=== PATIENT | male | born 1990 | race Caucasian/White ===

== ENCOUNTER 2016-11-05 20:01 | Emergency (ER) | payer BC ==
[2016-11-05] MEDS ORDERED: NS 0.9% 1000 ML* 2,000 ML IV ONE ×2 (20:12→23:03)
[2016-11-05 20:49] LABS: Hematocrit 39 % (42-52); Hemoglobin 13.2 g/dl (14.0-18.0); Mean Corpuscular HGB Conc 34 g/dl (31-36); Mean Corpuscular Hemoglobin 30 pg (27-31); Mean Corpuscular Volume 89 fL (80-94); Mean Platelet Volume 9 um3 (7.4-10.4); Red Blood Count 4.37 10^6/ul (4.0-5.4); Red Cell Distribution Width 12 % (10.5-15)
[2016-11-05 21:04] LABS: ALT 18 U/L (7-52); AST 18 U/L (13-39); Albumin 4.3 g/dL (3.2-5.2); Alkaline Phosphatase 47 U/L (34-104); Anion Gap 12 mmol/L (2-11); BUN/Creatinine Ratio 17.3 (8-20); Blood Urea Nitrogen 19 mg/dL (6-24); C Reactive Protein < 1.00 mg/L (< 5.00); CO2 Carbon Dioxide 21 mmol/L (22-32); Calcium 9.1 mg/dL (8.6-10.3); Chloride 103 mmol/L (101-111); Creatine Kinase 138 U/L (10-223); EGFR African American 104.1 (>60); EGFR Non-African American 80.9 (>60); Globulin 2.6 g/dL (2-4); Glucose 131 mg/dL (70-100); Magnesium 1.9 mg/dL (1.9-2.7); Potassium 3.3 mmol/L (3.5-5.0); Sodium 136 mmol/L (133-145); Total Protein 6.9 g/dL (6.4-8.9); Uric Acid 8.6 mg/dL (4.4-7.6)
[2016-11-05 21:37] LABS: TSH (Thyroid Stimulating Horm) 1.18 mcIU/mL (0.34-5.60)
[2016-11-05 21:40] LABS: Mono Internal Control QC Line Present
[2016-11-05 21:47] LABS: Urine Bilirubin Negative (Negative); Urine Glucose Negative (Negative); Urine Nitrite Negative (Negative)
--- NOTE | 2016-11-05 22:19 | RAD ---
Indication: Syncope. Single frontal view of the chest performed at 2118 hours was reviewed. No prior study is available for comparison. No mediastinal shift is noted. Heart is of normal size and configuration. Lung alvares appear clear. IMPRESSION: NO ACTIVE CARDIOPULMONARY DISEASE IS NOTED.
--- NOTE | 2016-11-05 23:10 | ED ---
Chacorta To Thomas, scribed for uJaquin Fair MD on 11/05/16 at 2025 . Lower Extremity - HPI Summary HPI Summary: The pt is a 26 y/o M BIB EMS and presenting to the ED c/o lightheadedness, dizziness, and tremors that began quite suddenly today at 19:15 when he was hiking. He also c/o thirst, some nausea. Per EMS, his HR was 120 at the scene and in the examination room his HR is 100. He was given IV fluids en route to [facility] [place] ED, but these did not relieve his symptoms. Pt denies abd pain, CP, SOB. He also denies that he is currently sick. He reports that he drank 2 cups of coffee today but has not consumed any other liquids to the best of his knowledge. He denies any episodes of symptoms that are similar to this. - History of Current Complaint Chief Complaint: EDDizziness Stated Complaint: NEAR SYNCOPE Time Seen by Provider: 11/05/16 20:04 Hx Obtained From: Patient, EMS Onset of Pain: Immediate Onset/Duration: Minutes - today at 19:15 Pain Intensity: 0 Pain Scale Used: 0-10 Numeric Timing: Constant Associated Signs And Symptoms: Positive: Dizziness, Other - POS: lightheadedness , tremors, thirst, some nausea; NEG: CP, SOB. Negative: Fever, Abdominal Pain Aggravating Factor(s): Nothing Alleviating Factor(s): Nothing - Allergies/Home Medications Allergies/Adverse Reactions: Allergies Allergy/AdvReac Type Severity Reaction Status Date / Time No Known Allergies Allergy Verified 11/13/13 07:49 PMH/Surg Hx/FS Hx/Imm Hx Previously Healthy: No Cardiovascular History: Denies: Hx Cardiac Arrest History: Reports: Other Problems/Disorders - LEFT VARICOCELE Sensory History: Reports: Hx Contacts or Glasses - GLASSES WHEN DRIVING Opthamlomology History: Reports: Hx Contacts or Glasses - GLASSES WHEN DRIVING EENT History: Denies: Hx Deafness - Surgical History Surgery Procedure, Year, and Place: 1996- BIOPSY LEFT HIP Hx Anesthesia Reactions: No Infectious Disease History: Denies: Traveled Outside the [place] in Last 30 Days - Family History Known Family History: Positive: Diabetes - Social History Alcohol Use: Weekly Alcohol Amount: 4 DRINKS WEEKLY Hx Substance Use: No Substance Use Type: Reports: None Hx Tobacco Use: No Smoking Status (MU): Never Smoked Tobacco Review of Systems Positive: Other - POS: thirst. Negative: Fever Negative: Chest Pain Negative: Shortness Of Breath Positive: Nausea - some. Negative: Abdominal Pain Neurological: Other - POS: lightheadedness, dizziness, tremors All Other Systems Reviewed And Are Negative: Yes Physical Exam Triage Information Reviewed: Yes Vital Signs On Initial Exam: Initial Vitals Temp Pulse Resp BP Pulse Ox 98.3 F 105 14 137/66 100 11/05/16 20:03 11/05/16 20:03 11/05/16 20:03 11/05/16 20:03 11/05/16 20:03 Vital Signs Reviewed: Yes Appearance: Positive: No Pain Distress, Well-Nourished, Ill-Appearing Skin: Positive: Warm, Skin Color Reflects Adequate Perfusion, Dry Head/Face: Positive: Normal Head/Face Inspection Eyes: Positive: EOMI, AZAM ENT: Positive: Normal ENT inspection Neck: Positive: Supple, Nontender Respiratory/Lung Sounds: Positive: Clear to Auscultation, Breath Sounds Present Cardiovascular: Positive: RRR Abdomen Description: Positive: Nontender, Soft Musculoskeletal: Positive: Normal, Strength/ROM Intact Neurological: Positive: Sensory/Motor Intact, Alert, Oriented to Person Place, Time, Other - He has tremors Psychiatric: Positive: Affect/Mood Appropriate - [place] Coma Scale Coma Scale Total: 15 Diagnostics - Vital Signs Vital Signs Temp Pulse Resp BP Pulse Ox 11/05/16 20:06 98.3 F 105 14 137/66 100 11/05/16 20:03 98.3 F 105 14 137/66 100 - Laboratory Lab Results: Lab Results 11/05/16 11/05/16 11/05/16 Range/Units 20:38 20:38 20:38 WBC 14.0 H (3.5-10.8) 10^3/ul RBC 4.37 (4.0-5.4) 10^6/ul Hgb 13.2 L (14.0-18.0) g/dl Hct 39 L (42-52) % MCV 89 (80-94) fL MCH 30 (27-31) pg MCHC 34 (31-36) g/dl RDW 12 (10.5-15) % Plt Count 215 (150-450) 10^3/ul MPV 9 (7.4-10.4) um3 Neut % (Auto) 76.1 (38-83) % Lymph % (Auto) 17.7 L (25-47) % [place] % (Auto) 4.8 (1-9) % Eos % (Auto) 1.1 (0-6) % Baso % (Auto) 0.3 (0-2) % Absolute Neuts (auto) 10.7 H (1.5-7.7) 10^3/ul Absolute Lymphs (auto) 2.5 (1.0-4.8) 10^3/ul Absolute Monos (auto) 0.7 (0-0.8) 10^3/ul Absolute Eos (auto) 0.2 (0-0.6) 10^3/ul Absolute Basos (auto) 0 (0-0.2) 10^3/ul Absolute Nucleated RBC 0.01 10^3/ul Nucleated RBC % 0.1 Sodium 136 (133-145) mmol/L Potassium 3.3 L (3.5-5.0) mmol/L Chloride 103 (101-111) mmol/L Carbon Dioxide 21 L (22-32) mmol/L Anion Gap 12 H (2-11) mmol/L BUN 19 (6-24) mg/dL Creatinine 1.10 (0.67-1.17) mg/dL Est GFR ( Amer) 104.1 (>60) Est GFR (Non-Af Amer) 80.9 (>60) BUN/Creatinine Ratio 17.3 (8-20) Glucose 131 H (70-100) mg/dL Lactic Acid 1.8 (0.5-2.0) mmol/L Uric Acid 8.6 H (4.4-7.6) mg/dL Calcium 9.1 (8.6-10.3) mg/dL Magnesium 1.9 (1.9-2.7) mg/dL Total Bilirubin 0.80 (0.2-1.0) mg/dL AST 18 (13-39) U/L ALT 18 (7-52) U/L Alkaline Phosphatase 47 (34-104) U/L Total Creatine Kinase 138 (10-223) U/L CK-MB (CK-2) 2.1 (0.6-6.3) ng/mL Troponin I 0.00 (<0.04) ng/mL C-Reactive Protein < 1.00 (< 5.00) mg/L Total Protein 6.9 (6.4-8.9) g/dL Albumin 4.3 (3.2-5.2) g/dL Globulin 2.6 (2-4) g/dL Albumin/Globulin Ratio 1.7 (1-3) TSH 1.18 (0.34-5.60) mcIU/mL Urine Color Urine Appearance Urine pH (5-9) Ur Specific [place] (1.010-1.030) Urine Protein (Negative) Urine Ketones (Negative) Urine Blood (Negative) Urine Nitrate (Negative) Urine Bilirubin (Negative) Urine Urobilinogen (Negative) Ur Leukocyte Esterase (Negative) Urine Glucose (Negative) Monoscreen Negative (Negative) 11/05/16 Range/Units 21:38 WBC (3.5-10.8) 10^3/ul RBC (4.0-5.4) 10^6/ul Hgb (14.0-18.0) g/dl Hct (42-52) % MCV (80-94) fL MCH (27-31) pg MCHC (31-36) g/dl RDW (10.5-15) % Plt Count (150-450) 10^3/ul MPV (7.4-10.4) um3 Neut % (Auto) (38-83) % Lymph % (Auto) (25-47) % [place] % (Auto) (1-9) % Eos % (Auto) (0-6) % Baso % (Auto) (0-2) % Absolute Neuts (auto) (1.5-7.7) 10^3/ul Absolute Lymphs (auto) (1.0-4.8) 10^3/ul Absolute Monos (auto) (0-0.8) 10^3/ul Absolute Eos (auto) (0-0.6) 10^3/ul Absolute Basos (auto) (0-0.2) 10^3/ul Absolute Nucleated RBC 10^3/ul Nucleated RBC % Sodium (133-145) mmol/L Potassium (3.5-5.0) mmol/L Chloride (101-111) mmol/L Carbon Dioxide (22-32) mmol/L Anion Gap (2-11) mmol/L BUN (6-24) mg/dL Creatinine (0.67-1.17) mg/dL Est GFR ( Amer) (>60) Est GFR (Non-Af Amer) (>60) BUN/Creatinine Ratio (8-20) Glucose (70-100) mg/dL Lactic Acid (0.5-2.0) mmol/L Uric Acid (4.4-7.6) mg/dL Calcium (8.6-10.3) mg/dL Magnesium (1.9-2.7) mg/dL Total Bilirubin (0.2-1.0) mg/dL AST (13-39) U/L ALT (7-52) U/L Alkaline Phosphatase (34-104) U/L Total Creatine Kinase (10-223) U/L CK-MB (CK-2) (0.6-6.3) ng/mL Troponin I (<0.04) ng/mL C-Reactive Protein (< 5.00) mg/L Total Protein (6.4-8.9) g/dL Albumin (3.2-5.2) g/dL Globulin (2-4) g/dL Albumin/Globulin Ratio (1-3) TSH (0.34-5.60) mcIU/mL Urine Color Yellow Urine Appearance Clear Urine pH 7.0 (5-9) Ur Specific [place] 1.015 (1.010-1.030) Urine Protein Negative (Negative) Urine Ketones 2+ H (Negative) Urine Blood Negative (Negative) Urine Nitrate Negative (Negative) Urine Bilirubin Negative (Negative) Urine Urobilinogen Negative (Negative) Ur Leukocyte Esterase Negative (Negative) Urine Glucose Negative (Negative) Monoscreen (Negative) Result Diagrams: 11/05/16 20:38 11/05/16 20:38 Lab Statement: Any lab studies that have been ordered have been reviewed, and results considered in the medical decision making process. - EKG 21:13 Cardiac Rate: Tachycardia - 103 BPM EKG Interpretation: Sinus tachycardia. Nml ST. Borderline prolonged QTc interval at 469. Lower Extremity Course/Dx - Course Assessment/Plan: The pt is a 26 y/o M BIB EMS and presenting to the ED c/o lightheadedness, dizziness, and tremors that began quite suddenly today at 19: 15 when he was hiking. He also c/o thirst, some nausea. Per EMS, his HR was 120 at the scene and in the examination room his HR is 100. He was given IV fluids en route to [facility] [place] ED, but these did not relieve his symptoms. Pt denies abd pain, CP, SOB. He also denies that he is currently sick. He reports that he drank 2 cups of coffee today but has not consumed any other liquids to the best of his knowledge. He denies any episodes of symptoms that are similar to this. In the ED course the patient was given IV fluids. Bloodwork shows WBC 14, Hgb 13.2, Hct 39, absolute Neuts 10.7, Potassium 3.3, CO2 21, anion gap 12, glucose 131, uric acid 8.6. EKG shows sinus tachycardia with borderline prolonged QTc interval. DISCUSSED WITH HOSPITALIST; CRP NL, NO INCREASED FL INTERVAL. LYME SCREEN PENDING. IMPROVED IN ED WITH 2 LITERS IVF. THE PLAN IS TO GIVE ADDITIONAL IVF; IF IMPROVED FURTHER, WILL BE DISCHARGE HOME; IF NOT IMPROVED, CONSIDER ADMISSION. THIS WAS ALL DISCUSSED WITH PATIENT AND HIS MOTHER. - Diagnoses Provider Diagnoses: Near syncope, Dehydration Discharge - Discharge Plan Condition: Stable Disposition: HOME Patient Education Materials: Near Syncope (ED), Dehydration (ED) Referrals: Steven Griffiths MD [Primary Care Provider] - Additional Instructions: FOLLOW UP WITH YOUR DOCTOR. DRINK PLENTY OF FLUIDS. RETURN TO THE EMERGENCY DEPARTMENT FOR ANY WORSENING OF YOUR CONDITION; CHEST PAIN, SHORTNESS OF BREATH, YOU FEEL ILL, PALPITATIONS, YOU FEEL LIKE YOU ARE GOING TO PASS PUT OR QUESTIONS OR CONCERNS. The documentation as recorded by the Chacorta gonzalez Thomas accurately reflects the service I personally performed and the decisions made by me, Juaquin Fair MD.
[2016-11-06 00:43] VITALS: BP 117/53
== END 2016-11-06 00:49 | disposition home or self-care (01) ==
LOC: ED 20:01
DX: R55 Syncope and collapse (principal); R42 Dizziness and giddiness; E86.0 Dehydration
CPT/HCPCS: 36415; 71010; 80053; 81003; 82550; 82553; 83605; 83735; 84443; 84484; 84550; 85025; 86140; 86308; 86618; 93005; 99285

== ENCOUNTER 2018-05-24 07:36 | Emergency (ER) | payer BC ==
--- OUTSIDE RECORDS SUMMARY | 2018-05-24 07:47 | XMS REPORT | Continuity of Care Document ---
:1990 External Reference #:[id number] Author Name Tiana Deras Care Team Providers Name Role Phone Shama Williamson M.D. Primary Care Physician Unavailable Payers Date Identification Numbers Payment Provider Subscriber Policy Number: [id number] [employer] Freddy Rios PayID: [id number] [address] [address] [place] [address] Effective: 2012 Policy Number: [id number] [employer] Neo Rios Expires: 2016 PayID: [id number] [address] [address] [place] [address] Expires: 2012 Policy Number: [id number] [employer] Neo Rios PayID: [id number] [place] [address] Expires: 2016 Policy Number: [id number] [facility] Ppo Freddy Rios PayID: [id number] [address] [address] [place] [address] Advance Directives Description No Information Available Problems Date Description Provider Status Onset: 08/20/2012 Essential tremor Dale Zafar M.D. 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/2017 Occasionally consumes at parties alcohol Tobacco Use Start: Unknown Patient has never smoked Recreational Drug Use Denies Drug Use Smoking Status Reviewed: 05/19/18 Patient has never smoked Exercise Type/Frequency Exercises regularly jogs Currently Active Patient is currently sexually active Condom Use Always Allergies, Adverse Reactions, Alerts Date Description Reaction Status Severity Comments 10/18/2015 Doxycycline Active Moderate perioral itching, lip swelling 05/03/2011 NKDA Inactive Medications Medication Date Status Form Strength Qnty SIG Indications Ordering Provider Sertraline HCL 11/09/ Active Tablets 50mg 90tabs take 1 Sudhir 2016 tablet KO Dumont once daily. Levocetirizine / Active Tablets 5mg 1 by Unknown Dihydrochloride 0000 mouth every day prn Amoxicillin 12/18/ Hx Tablets 500mg 63tabs 1 tab by Steven Colmenares - mouth 3x D. Aye, 01/08/ a day M.D.,FACP 2016 for 21 days Lorazepam 11/09/ Hx Tablets 1mg 10tabs /2-1 by Steven 2017 - mouth Yancy Griffiths, 05/19/ once a M.D.,FACP 2018 day as needed Prednisone 06/29/ Hx Tablets 10mg 30tabs 5tabx L50.8 Stilwell 2017 - 2days,4 Pachikara, 10/28/ hdcs2iom M.D. 2017 s [id number] ys,2tabx 2days,1t abxday. No Active 05/07/ Hx Unknown Medications 2014 - 2014 Erythromycin 05/07/ Hx Ointment 5mg/GM 3.5uni apply 372.30 Be 2014 - bouchra Bolanos NP 10/01/ strip in 2014 eyes 5 times a day for 4 days No Active 03/10/ Hx Unknown Medications 2013 - 2013 Erythromycin 03/10/ Hx Ointment 5mg/GM 3.5uni apply 372.30 Steven 2013 Cleo shook thin Yancy Griffiths, 05/07/ strip in M.D.,FACP 2014 eyes 5 times a day for 4 days Clarithromycin 03/10/ Hx Tablets 500mg 20tabs 1 by 461.8 Steven 2013 - mouth Yancy Griffiths, 05/07/ twice a M.D.,FACP 2014 day for 10 days No Active 08/20/ Hx Unknown Medications 2012 - 2012 Azithromycin 12/31/ Tablets 250mg 6tabs 2 tabs Elisabeth 2012 - po qd x1 Nitish, 08/20/ day, 1 N.P. 2013 tab po qd x 4 days Claritin / Hx 1 tablet Unknown 0000 - daily 03/10/ prn 2013 Doxycycline / Hx Solution 100mg 20unit si Unknown Hyclate 0000 - Rec s bid x 10 03/10/ 2013 Allergy Shots / Hx Unknown 0000 - 2015 Cefuroxime Axetil / Hx Tablets 500mg 1 PO bid Unknown 0000 - X 21 2016 Medications Administered in Office Medication Date Status Form Strength Qnty SIG Indications Ordering Provider PPD Administered Injection Nurse Visit 012 [place] DTaP,Unspecifi Administered Injection Unknown ed 996 DTaP,Unspecifi Administered Injection Unknown ed 992 DTaP,Unspecifi Administered Injection Unknown ed 991 DTaP,Unspecifi Administered Injection Unknown ed 991 DTaP,Unspecifi Administered Injection Unknown ed 991 Immunizations CPT Code Status Date Vaccine Lot # [id number] Given 10/16/2010 Hepatitis A Vaccine Adult Dosage 13949 Given 06/30/2008 Meningococcal Immunization 58377 Given 06/30/2008 Hepatitis A Vaccine Adult Dosage 15136 Given 08/02/2003 Td Toxoids Adsorbed For Use 7Yrs Or Older For Intramuscular Use 85987 Given 06/05/2001 Hep B Pediatric/Adolescent 10231 Given 02/06/2001 Hep B Pediatric/Adolescent 82519 Given 12/02/2000 Hep B Pediatric/Adolescent 11349 Given 10/15/1995 IPV/Poliomyelitis Immunization 02952 Given 10/15/1995 Measles Mumps And Rubella MMR 28629 Given 12/01/1991 IPV/Poliomyelitis Immunization 31792 Given 12/01/1991 Measles Mumps And Rubella MMR 67906 Given 08/08/1991 Varicella (Chicken Pox) Immunization 84434 Given 1990 IPV/Poliomyelitis Immunization 60370 Given Unknown IPV/Poliomyelitis Immunization Vital Signs Date Vital Result Comment 05/19/2018 3:28pm Height 74 inches 6'2" Weight 165.00 lb Heart Rate 61 /min BP Systolic 117 mmHg BP Diastolic 68 mmHg Body Temperature 97.4 F O2 % BldC Oximetry 97 % BMI (Body Mass Index) 21.2 kg/m2 02/28/2017 2:22pm Weight 163.12 lb Heart Rate 67 /min BP Systolic 118 mmHg BP Diastolic 68 mmHg Body Temperature 97.1 F O2 % BldC Oximetry 91 % 12/12/2016 8:27am Weight 163.00 lb Heart Rate 93 /min BP Systolic Sitting 110 mmHg BP Diastolic Sitting 62 mmHg Body Temperature 96.7 F O2 % BldC Oximetry 98 % 12/03/2016 3:10pm Height 74 inches 6'2" Weight 160.00 lb Heart Rate 95 /min BP Systolic 136 mmHg BP Diastolic 74 mmHg Body Temperature 98.4 F O2 % BldC Oximetry 97 % BMI (Body Mass Index) 20.5 kg/m2 11/08/2016 4:09pm Height 74 inches 6'2" Weight 169.38 lb Heart Rate 79 /min BP Systolic 108 mmHg BP Diastolic 62 mmHg Body Temperature 97.2 F O2 % BldC Oximetry 99 % BMI (Body Mass Index) 21.7 kg/m2 10/29/2016 2:12pm Weight 171.00 lb Heart Rate 57 /min BP Systolic 110 mmHg BP Diastolic 60 mmHg Body Temperature 97.6 F O2 % BldC Oximetry 98 % 06/29/2016 9:17am Weight 170.00 lb Heart Rate 74 /min BP Systolic Sitting 128 mmHg BP Diastolic Sitting 80 mmHg Respiratory Rate 16 /min Body Temperature 98.1 F O2 % BldC Oximetry 98 % 10/18/2015 8:30am Weight 168.00 lb Heart Rate 51 /min BP Systolic Sitting 122 mmHg BP Diastolic Sitting 70 mmHg Body Temperature 97.0 F O2 % BldC Oximetry 98 % 10/01/2014 4:03pm Weight 168.00 lb Heart Rate 76 /min BP Systolic Sitting 114 mmHg BP Diastolic Sitting 80 mmHg Body Temperature 97.3 F O2 % BldC Oximetry 98 % 05/07/2014 9:52am Height 74 inches 6'2" Weight 169.12 lb Heart Rate 61 /min BP Systolic Sitting 112 mmHg BP Diastolic Sitting 78 mmHg Body Temperature 96.2 F O2 % BldC Oximetry 98 % BMI (Body Mass Index) 21.7 kg/m2 03/10/2014 1:08pm Weight 165.25 lb Heart Rate 64 /min BP Systolic Sitting 102 mmHg BP Diastolic Sitting 64 mmHg Body Temperature 96.9 F 11/18/2012 3:47pm Weight 157.00 lb Heart Rate 58 /min BP Systolic Sitting 108 mmHg BP Diastolic Sitting 66 mmHg 08/20/2012 4:15pm Weight 162.00 lb Heart Rate 64 /min BP Systolic Sitting 130 mmHg BP Diastolic Sitting 72 mmHg 05/03/2011 3:39pm Height 73 inches 6'1" Weight 152.75 lb Heart Rate 68 /min BP Systolic Sitting 120 mmHg BP Diastolic Sitting 54 mmHg BMI (Body Mass Index) 20.2 kg/m2 Results Test Date Facility Test Result H/L Range Note Lyme Western 12/14/2016 [facility] Lyme Disease Negative N Negative Blot [address] [place] [address] [phone] Lyme Disease IgG Bands Present No bands detecte <SEE NOTE> kDa N 1 Lyme Disease IgM Ab WB Positive N Negative Lyme Disease IgM Bands Present p41, p23, kDa N Lyme Disease Interpretation See Comment N 2 CBC Auto Diff 11/09/2016 [facility] White Blood 7.5 10^3/uL N 3.5-10.[address] [place] [address] [phone] Red Blood Count 4.91 10^6/uL N 4.0-5.4 Hemoglobin 14.8 g/dL N 14.0-18.0 Hematocrit 44 % N 42-52 Mean Corpuscular Volume 89 fL N 80-94 Mean Corpuscular Hemoglobin 30 pg N 27-31 Mean Corpuscular HGB Conc 34 g/dL N 31-36 Red Cell Distribution Width 12 % N 10.5-15 Platelet Count 235 10^3/uL N 150-450 Mean Platelet Volume 10 um3 N 7.4-10.4 Abs Neutrophils 3.5 10^3/uL N 1.5-7.7 Abs Lymphocytes 3.1 10^3/uL N 1.0-4.8 Abs Monocytes 0.5 10^3/uL N 0-0.8 Abs Eosinophils 0.3 10^3/uL N 0-0.6 Abs Basophils 0 10^3/uL N 0-0.2 Abs Nucleated RBC 0.01 10^3/uL N Granulocyte % 47.1 % N 38-83 Lymphocyte % 41.7 % N 25-47 Monocyte % 7.1 % N 1-9 Eosinophil % 3.5 % N 0-6 Basophil % 0.6 % N 0-2 Nucleated Red Blood Cells % 0.1 N Laboratory test 11/09/2016 [facility] C Reactive < 1.00 N < 5.00 3 finding 101 [facility] Protein mg/[place] [address] [phone] Erythrocyte Sed Rate 6 mm/Hr N 0-14 4 Lyme Disease Serology Negative N Negative 5 Tick-Borne Panel 11/09/2016 [facility] Babesia Negative N Negative PCR Blood [address] [place] [address] [phone] Babesia ducani Negative N Negative Babesia divergens/Mo-1 Negative N Negative 6 Anaplasma phagocytophilum Negative N Negative Ehrlichia chaffeensis Negative N Negative Ehrlichia ewingii/canis Negative N Negative Ehrlichia muris-like Negative N Negative 7 B. miyamotoi PCR, B Negative N Negative 8 Laboratory test 11/09/2016 [facility] Vitamin B12 541 pg/mL N 180-914 9 finding [address] [place] [address] [phone] Lipid Profile 11/09/2016 [facility] Triglycerides 88 mg/dL N 10 (Trig/Chol/HDL) [address] [place] [address] [phone] Cholesterol 151 mg/dL N 11 HDL Cholesterol 57.4 mg/dL N 12 LDL Cholesterol 76 mg/dL N 13 Comp Metabolic Panel 11/09/2016 [facility] Sodium 134 mmol/L N 133-[address] [place] [address] [phone] Potassium 3.7 mmol/L N 3.5-5.0 Chloride 99 mmol/L Low 101-111 Co2 Carbon Dioxide 26 mmol/L N 22-32 Anion Gap 9 mmol/L N 2-11 Glucose 113 mg/dL High 70-100 Blood Urea Nitrogen 14 mg/dL N 6-24 Creatinine 1.10 mg/dL N 0.67-1.17 BUN/Creatinine Ratio 12.7 N 8-20 Calcium 10.2 mg/dL N 8.6-10.3 Total Protein 7.7 g/dL N 6.4-8.9 Albumin 4.8 g/dL N 3.2-5.2 Globulin 2.9 g/dL N 2-4 Albumin/Globulin Ratio 1.7 N 1-3 Total Bilirubin 1.30 mg/dL High 0.2-1.0 Alkaline Phosphatase 48 U/L N 34-104 Alt 16 U/L N 7-52 Ast 14 U/L N 13-39 Egfr Non- 80.9 N >60 Egfr 104.1 N >60 14 Laboratory test 11/09/2016 [facility] TSH (Thyroid 1.18 mcIU/mL N 0.34-5.[address] Stim Horm) [place] [address] [phone] Iron & Iron 11/09/2016 [facility] Iron 178 g/dL N 50-[address] [place] [address] [phone] Unsaturated Iron Binding 241 g/dL N Total Iron Binding Capacity 419 g/dL N 250-450 % Iron Saturation 42 % N 15-55 Urinalysis Profile 11/05/2016 [facility] Urine Color Yellow N [address] [place] [address] [phone] Urine Appearance Clear N Urine Specific [place] 1.015 N 1.010-1.030 Urine pH 7.0 N 5-9 Urine Urobilinogen Negative N Negative Urine Ketones 2+ Abnormal Negative Urine Protein Negative N Negative Urine Leukocytes Negative N Negative Urine Blood Negative N Negative Urine Nitrite Negative N Negative Urine Bilirubin Negative N Negative Urine Glucose Negative N Negative Laboratory test 11/05/2016 [facility] TSH (Thyroid 1.18 mcIU/mL N 0.34-5.[address] Stim [place]orm) [place] [address] [phone] Monospot Negative N Negative Lyme Disease Serology Negative N Negative 16 CKMB 11/05/2016 [facility] CKMB ng/mL 2.1 ng/mL N 0.6-6.3 [address] [place] [address] [phone] Laboratory test 11/05/2016 [facility] Uric Acid 8.6 mg/dL High 4.4-7.6 finding [address] [place] [address] [phone] Magnesium 1.9 mg/dL N 1.9-2.7 Creatine Kinase(CK) 138 U/L N 10-223 C Reactive Protein < 1.00 mg/L N < 5.00 17 Troponin-I (TnI) 0.00 ng/mL N <0.04 Comp Metabolic Panel 11/05/2016 [facility] Sodium 136 mmol/L N 133-[address] [place] [address] [phone] Potassium 3.3 mmol/L Low 3.5-5.0 Chloride 103 mmol/L N 101-111 Co2 Carbon Dioxide 21 mmol/L Low 22-32 Anion Gap 12 mmol/L High 2-11 Glucose 131 mg/dL High 70-100 Blood Urea Nitrogen 19 mg/dL N 6-24 Creatinine 1.10 mg/dL N 0.67-1.17 BUN/Creatinine Ratio 17.3 N 8-20 Calcium 9.1 mg/dL N 8.6-10.3 Total Protein 6.9 g/dL N 6.4-8.9 Albumin 4.3 g/dL N 3.2-5.2 Globulin 2.6 g/dL N 2-4 Albumin/Globulin Ratio 1.7 N 1-3 Total Bilirubin 0.80 mg/dL N 0.2-1.0 Alkaline Phosphatase 47 U/L N 34-104 Alt 18 U/L N 7-52 Ast 18 U/L N 13-39 Egfr Non- 80.9 N >60 Egfr 104.1 N >60 18 Laboratory test 11/05/2016 [facility] Lactic Acid 1.8 mmol/L N 0.5-2.[address] [place] [address] [phone] CBC Auto Diff 11/05/2016 [facility] White Blood 14.0 High 3.5- 10.[address] Count 10^3/[place] [address] [phone] Red Blood Count 4.37 10^6/uL N 4.0-5.4 Hemoglobin 13.2 g/dL Low 14.0-18.0 Hematocrit 39 % Low 42-52 Mean Corpuscular Volume 89 fL N 80-94 Mean Corpuscular Hemoglobin 30 pg N 27-31 Mean Corpuscular HGB Conc 34 g/dL N 31-36 Red Cell Distribution Width 12 % N 10.5-15 Platelet Count 215 10^3/uL N 150-450 Mean Platelet Volume 9 um3 N 7.4-10.4 Abs Neutrophils 10.7 10^3/uL High 1.5-7.7 Abs Lymphocytes 2.5 10^3/uL N 1.0-4.8 Abs Monocytes 0.7 10^3/uL N 0-0.8 Abs Eosinophils 0.2 10^3/uL N 0-0.6 Abs Basophils 0 10^3/uL N 0-0.2 Abs Nucleated RBC 0.01 10^3/uL N Granulocyte % 76.1 % N 38-83 Lymphocyte % 17.7 % Low 25-47 Monocyte % 4.8 % N 1-9 Eosinophil % 1.1 % N 0-6 Basophil % 0.3 % N 0-2 Nucleated Red Blood Cells % 0.1 N Laboratory test 10/03/2016 [facility] Lyme Disease Negative N Negative [address] Serology [place], [place] [id number] [phone] Laboratory test 10/18/2015 [facility] Lyme Disease Negative N Negative [address] Serology [place], [place] [address] [phone] Vitamin B12 And 08/21/2012 [facility] Vitamin B12 715 pg/mL 180-914 Folate Serum [address] [place] [address] [phone] Folate > 25.6 ng/mL High 2-16 Laboratory test 08/21/2012 [facility] TSH (Thyroid 1.59 0.34- 5.[address] Stimulating miu/[place] [address] Horm) [phone] CBC With Manual 09/17/2011 [facility] White Blood 6.9 CUMM 4.8-10.[address] [place] [address] [phone] Red Cell Count 4.89 CUMM 4.6-6.2 Hemoglobin 14.8 g/dL 14.0-18.0 Hematocrit 44 % 42-52 Mean Corpuscular Volume 91 um3 80-94 Mean Corpuscular Hemoglob 30 pg 27-31 Mean Corpuscular HGB Cone 33 g/dL 32-36 Redcell Distribution WDTH 12 % 10.5-15 Platelet Count 224 CUMM 150-450 Mean Platelet Volume 10.3 um3 7.4-10.4 Absolute Neutrophil Count 2.7 1.5-7.7 Polysegmented Neutrophil 48 % 38-83 Lymphocyte 41 % 25-47 Monocyte 6 % 0-13 Eosinophil 5 % 0-6 RBC Morphology NORMAL Comp Metabolic Panel 09/17/2011 [facility] Sodium 136 mmol/L 135-145 [address] [place] [address] [phone] Potassium 4.3 mmol/L 3.5-5.0 Chloride 101 mmol/L 101-111 Co2 (Carbon Dioxide) 29.0 mmol/L 22-32 Anion Gap 6.0 mmol/L 2-11 22 Glucose 99 mg/dL 70-100 BUN 13 mg/dL 6-24 Creatinine 1.0 mg/dL 0.50-1.40 One Over Creatinine 1.00 BUN/Creatinine Ratio 13.0 8-20 Calcium 9.8 mg/dL 8.1-9.9 Total Protein 7.2 GM/DL 6.2-8.1 Albumin 4.5 GM/DL 3.6-5.4 Globulin 2.7 GM/DL 2-4 Albumin/Globulin Ratio 1.7 1-3 Bilirubin Total 1.0 mg/dL 0.4-1.5 23 Alkaline Phosphatase 70 U/L 50-176 Alt (SGPT) 23 U/L 17-63 Ast (Sgot) 22 U/L 12-42 eGFR Non- 94.3 > 60 eGFR 121.3 > 60 24 Urine Microalbumin 09/17/2011 [facility] Microalbumin (MG/L) 5.0 mg/L Random [address] [place] [address] [phone] Urine Creatinine 129.9 mg/dL Robert Alb/Creatinine Ratio 3.8 UG/MG Less Than 30 25 1 No bands detected 2 Consistent with early infection with Borrelia burgdorferi. A new serum specimen should be submitted in 14-21 days to demonstrate seroconversion of IgG. IgM blot criteria is of diagnostic utility only during the first 4 weeks of early Lyme disease. ADDITIONAL INFORMATION CDC criteria require >=5 bands for IgG or >=2 bands for IgM for the Immunoblot to be considered positive. Bands (e.g.,p41) may be detected in patients without Lyme disease, and patterns not meeting the CDC criteria should be interpreted with caution. Immunoblot should be ordered only on specimens that are positive or equivocal by a FDA-licensed Lyme disease antibody screening test (e.g., EIA). Test Performed by: [facility] [address] [place] [address] 3 Acute inflammation: >10.00 4 FASTING 5 Serologic response to B. burgdorferi infection is not detected, but cannot rule out early infection during which low or undetectable antibody levels to B. burgdorferi may be present. If clinically indicated, a new serum specimen should be submitted in 7-14 days. Test Performed by: [facility] [address] [place] [address] 6 ADDITIONAL INFORMATION This test was developed and its performance characteristics determined by [facility] in a manner consistent with CLIA requirements. This test has not been cleared or approved by the U.S. Food and Drug Administration. 7 ADDITIONAL INFORMATION This test was developed and its performance characteristics determined by [facility] in a manner consistent with CLIA requirements. This test has not been cleared or approved by the U.S. Food and Drug Administration. 8 ADDITIONAL INFORMATION This test was developed and its performance characteristics determined by [facility] in a manner consistent with CLIA requirements. This test has not been cleared or approved by the U.S. Food and Drug Administration. Test Performed by: [facility] [address] [place] [address] 9 Normal Range 180 to 914 Indeterminate Range 145 to 180 Deficient Range <145 10 Desirable <150 Borderline high 150-199 High 200-499 Very High >500 11 Desirable <200 Borderline high 200-239 High >239 12 Low <40 Desirable: 40-60 High: >60 13 Desirable: <100 mg/dL Near Optimal: 100-129 mg/dL Borderline High: 130-159 mg/dL High: 160-189 mg/dL Very High: >189 mg/dL 14 Because ethnic data is not always readily available, this report includes an eGFR for both -Americans and non- Americans. The National Kidney Disease Education Program (NKDEP) does not endorse the use of the MDRD equation for patients that are not between the ages of 18 and 70, are , have extremes of body size, muscle mass, or nutritional status, or are non- or non-. According to the National Kidney Foundation, irrespective of diagnosis, the stage of the disease is based on the level of kidney function: Stage Description GFR(mL/min/1.73 m(2)) 1 Kidney damage with normal or decreased GFR 90 2 Kidney damage with mild decrease in GFR 60-89 3 Moderate decrease in GFR 30-59 4 Severe decrease in GFR 15-29 5 Kidney failure <15 (or dialysis) 15 FASTING 16 Serologic response to B. burgdorferi infection is not detected, but cannot rule out early infection during which low or undetectable antibody levels to B. burgdorferi may be present. If clinically indicated, a new serum specimen should be submitted in 7-14 days. Test Performed by: [place] [id number] 17 Acute inflammation: >10.00 18 Because ethnic data is not always readily available, this report includes an eGFR for both -Americans and non- Americans. The National Kidney Disease Education Program (NKDEP) does not endorse the use of the MDRD equation for patients that are not between the ages of 18 and 70, are , have extremes of body size, muscle mass, or nutritional status, or are non- or non-. According to the National Kidney Foundation, irrespective of diagnosis, the stage of the disease is based on the level of kidney function: Stage Description GFR(mL/min/1.73 m(2)) 1 Kidney damage with normal or decreased GFR 90 2 Kidney damage with mild decrease in GFR 60-89 3 Moderate decrease in GFR 30-59 4 Severe decrease in GFR 15-29 5 Kidney failure <15 (or dialysis) 19 [place] Severe Sepsis and Septic Shock Management Bundle Measure requires all lactic acids initially measuring >2.0 mmol/L be repeated. 20 Serologic response to B. burgdorferi infection is not detected, but cannot rule out early infection during which low or undetectable antibody levels to B. burgdorferi may be present. If clinically indicated, a new serum specimen should be submitted in 7-14 days. Test Performed by: [place] [id number] 21 Serologic response to B. burgdorferi infection is not detected, but cannot rule out early infection during which low or undetectable antibody levels to B. burgdorferi may be present. If clinically indicated, a new serum specimen should be submitted in 7-14 days. Test Performed by: [place] [address] Biological Engineer: Juaquin Rodriguez II, M.D., Ph.D. 22 Anion gap measurement may be of limited value in the presence of any alkalosis, especially in a combined acid base disorder. . 23 A metabolite of Naproxen, O-desmethylnaproxen, has been shown to interfere with the Jendrassik-Rimma method for measuring total bilirubin. Samples from patients who have taken Naproxen have shown spurious elevation in total bilirubin levels. 24 Because ethnic data is not always readily available, this report includes an eGFR for both -Americans and non- Americans. The National Kidney Disease Education Program (NKDEP) does not endorse the use of the MDRD equation for patients that are not between the ages of 18 and 70, are , have extremes of body size, muscle mass, or nutritional status, or are non- or non-. According to the National Kidney Foundation, irrespective of diagnosis, the stage of the disease is based on the level of kidney function: Stage Description GFR(mL/min/1.73 m(2)) 1 Kidney damage with normal or decreased GFR 90 2 Kidney damage with mild decrease in GFR 60-89 3 Moderate decrease in GFR 30-59 4 Severe decrease in GFR 15-29 5 Kidney failure <15 (or dialysis) 25 MICROALBUMINURIA IN A RANDOM SAMPLE IS DEFINED : MICROALBUMIN/CREATININE RATIO OF 30-299 ug/mg. . Procedures Date Code Description Status 11/26/2016 60073 ECHO Transthoracic, Real-Time 2D With Doppler And Color Completed Flow 10/01/2014 29988 Destruction Of Benign Lesions Any Method 1-14 lesions Completed Encounters Type Date Location Provider Dx Diagnosis Office Visit 02/28/2017 [facility] Internal Steven Haines Z00.00 Encntr for general 2:10p Sommer Griffiths M.D.,FACP adult medical exam Rd w/o abnormal findings A69.20 Lyme disease, unspecified F41.0 Panic disorder [episodic paroxysmal anxiety] Office Visit 12/12/2016 8:20a [facility] Steven Haines A69.20 Lyme disease, Sommer Griffiths M.D.,FACP unspecified [address] F41.9 Anxiety disorder, unspecified Office Visit 12/03/2016 3:10p [facility] Chelsi A69.20 Lyme disease, Sommer Guy NP unspecified [address] R53.83 Other fatigue Office Visit 11/08/2016 4:00p [facility] Steven Haines R53.83 Other fatigue Sommer Griffiths M.D.,FACP Rd D64.89 Other specified anemias I65.23 Occlusion and stenosis of bilateral carotid arteries R01.1 Cardiac murmur, unspecified F41.0 Panic disorder without agoraphobia Office Visit 10/29/2016 2:20p [facility] Internal Hernandez Gonzales R53.83 Other fatigue Sommer Birch M.D. [place] Z13.220 Encounter for screening for lipoid disorders Z13.1 Encounter for screening for diabetes mellitus Office Visit 06/29/2016 9:20a [facility] [place] L50.8 Other urticaria Sommer Zafar M.D. [address] Office Visit 10/18/2015 8:30a [facility] Teresa Anderson A69.20 Lyme disease, Sommer - Wilmar unspecified [place] T78.40xA Allergy, unspecified, initial encounter Office Visit 05/07/2014 10:00a [facility] Internal Be Bolanos, 372.30 Conjunctivitis Medicine - Jose [employer] [address] Office Visit 03/10/2014 1:00p [facility] Steven Haines 372.30 Conjunctivitis Sommer Griffiths [address] Simone Urban,FACP 461.8 Sinusitis Acute Other Office Visit 11/18/2012 4:00p [facility] Elisabeth Nitish, 456.4 [facility] Scrotal Medicine - Katarina Tamayowood Office Visit 08/20/2012 4:00p [facility] [place] 356.8 Neuropathy Other Medicine - Wilmar Zafar Spec Idi[facility] [place] Peripheral 333.1 Tremor Essential & Other Forms Office Visit 05/03/2011 4:00p [facility] Internal Steven Haines V70.0 Examination Medicine - Wilmar Griffiths,FACP [facility] Routine [facility] 704.9 Hair & Hair Follicle Diseases Unspec Plan of Treatment 05/19/2018 - Sudhir Dumont, NPF41.9 Anxiety disorder, unspecifiedComments:When you decide which counselor you would like to see let me know.M25.551 Pain in right hipNew Xrays:Hip Right 2 Views And Pelvis [id number] - [id number], Ordered: 05/19/18New Therapy:Physical TherapyComments:I am referring you to physical therapy for further evaluation and treatment. Have the xray done soon.
--- NOTE | 2018-05-24 08:13 | ED ---
Shortness of Breath - HPI Summary HPI Summary: Patient is a 27-year-old male presenting to the ED after he feels he may have inhaled a piece of pasta last evening while working. He states after he felt the posterior in his throat, he began to cough heavily for approximately 2 hours. He was able to go to sleep, however continues to endorse chest "burning. " He does not have a cardiac or lung history. He states this is never happened to him before. While his coughing has reduced, he continues to endorse chest burning. He denies any nausea, vomiting. He denies any fevers, sweats, chills. He offers no other complaints, takes no medications and is otherwise healthy. - History of Current Complaint Chief Complaint: EDGeneral Time Seen by Provider: 05/24/18 07:42 Hx Obtained From: Patient Onset/Duration: Sudden Onset Timing: Constant Current Severity: None Associated Signs & Symptoms: Cough (Productive) - Risk Factors Pulmonary Embolism: Negative Cardiac: Negative Pseudomonas: Negative Tuberculosis: Negative - Allergy/Home Medications Allergies/Adverse Reactions: Allergies Allergy/AdvReac Type Severity Reaction Status Date / Time No Known Allergies Allergy Verified 11/13/13 07:49 PMH/Surg Hx/FS Hx/Imm Hx Previously Healthy: Yes Cardiovascular History: Denies: Hx Cardiac Arrest History: Reports: Other Problems/Disorders - LEFT VARICOCELE Sensory History: Reports: Hx Contacts or Glasses - GLASSES WHEN DRIVING Denies: Hx Deafness Opthamlomology History: Reports: Hx Contacts or Glasses - GLASSES WHEN DRIVING - Surgical History Surgery Procedure, Year, and Place: 1996- BIOPSY LEFT HIP Hx Anesthesia Reactions: No - Immunization History Hx Pertussis Vaccination: No Immunizations Up to Date: Yes Infectious Disease History: No Infectious Disease History: Denies: Traveled Outside the [place] in Last 30 Days - Family History Known Family History: Positive: None, Diabetes - Social History Occupation: Employed Full-time Lives: With Family Alcohol Use: Weekly Alcohol Amount: 4 DRINKS WEEKLY Hx Substance Use: No Substance Use Type: Reports: None Hx Tobacco Use: No Smoking Status (MU): Never Smoked Tobacco Review of Systems Negative: Fever, Chills, Fatigue, Skin Diaphoresis Negative: Epistaxis, Dental Pain Positive: Chest Pain. Negative: Palpitations Positive: Shortness Of Breath, Cough Genitourinary: Negative Positive: no symptoms reported, see HPI Negative: Arthralgia, Myalgia Skin: Negative Neurological: Negative All Other Systems Reviewed And Are Negative: Yes Physical Exam Triage Information Reviewed: Yes Vital Signs On Initial Exam: Initial Vitals Temp Pulse Resp BP Pulse Ox 97.4 F 54 18 132/68 100 05/24/18 07:39 05/24/18 07:39 05/24/18 07:39 05/24/18 07:39 05/24/18 07:39 Vital Signs Reviewed: Yes Appearance: Positive: Well-Appearing, Well-Nourished Skin: Positive: Warm, Skin Color Reflects Adequate Perfusion Head/Face: Positive: Normal Head/Face Inspection Eyes: Positive: EOMI, AZAM, Conjunctiva Clear Neck: Positive: Supple, No Lymphadenopathy Respiratory/Lung Sounds: Positive: Clear to Auscultation, Breath Sounds Present Cardiovascular: Positive: RRR, Pulses are Symmetrical in both Upper and Lower Extremities Neurological: Positive: Speech Normal Psychiatric: Positive: Affect/Mood Appropriate AVPU Assessment: Alert Diagnostics - Vital Signs Vital Signs Temp Pulse Resp BP Pulse Ox 05/24/18 07:39 97.4 F 54 18 132/68 100 - Laboratory Result Diagrams: 05/24/18 08:36 Lab Statement: Any lab studies that have been ordered have been reviewed, and results considered in the medical decision making process. Course/Dx - Course Course Of Treatment: Patient is evaluated for possible aspiration which occurred last evening. He states since this occurred, he has been feeling much improved, however he spoke with respiratory therapist friend who told him to come to the ED for evaluation of aspiration. He continues to endorse cough, however without production. The cough improved greatly since last evening. He does endorse some burning sensation. Chest x-ray obtained: Labs obtained which are all WNL including and troponin of 0.00. EKG obtained which shows a sinus bradycardia with a rate of 53. Chest x-ray obtained which shows no acute abnormalities. CRP within normal limits. He will be discharged with cough and chest pain secondary to coughing. - Diagnoses Differential Diagnosis/HQI/PQRI: Positive: Asthma, Bronchitis Provider Diagnoses: Costochondritis Discharge - Sign-Out/Discharge Documenting (check all that apply): Patient Departure Patient Received Moderate/Deep Sedation with Procedure: No - Discharge Plan Condition: Stable Disposition: HOME Referrals: Steven Griffiths MD [Primary Care Provider] - Additional Instructions: No evidence of an aspiration - Billing Disposition and Condition Condition: STABLE Disposition: Home
[2018-05-24 09:00] LABS: C Reactive Protein < 1.00 mg/L (<8.01)
[2018-05-24 09:39] VITALS: BP 132/64
== END 2018-05-24 09:38 | disposition home or self-care (01) ==
LOC: ED 07:36
DX: M94.0 Chondrocostal junction syndrome [Tietze] (principal); R05 Cough; R07.9 Chest pain, unspecified; R06.02 Shortness of breath
CPT/HCPCS: 36415; 71046; 84484; 85048; 86140; 93005; 99282

== ENCOUNTER 2019-03-31 08:15 | Emergency (ER) | payer BC ==
[2019-03-31 09:31] LABS: ABS Eosinophils 0.1 10^3/ul (0-0.6); ABS Lymphocytes 2.1 10^3/ul (1.0-4.8); ABS Monocytes 0.5 10^3/ul (0-0.8); ABS Neutrophils 2.9 10^3/ul (1.5-7.7); Eosinophil % 2.3 %; Hematocrit 43 % (42-52); Hemoglobin 14.6 g/dL (14.0-18.0); Lymphocyte % 37.4 %; Mean Corpuscular HGB Conc 34 g/dL (31-36); Mean Corpuscular Hemoglobin 31 pg (27-31); Mean Corpuscular Volume 89 fL (80-94); Mean Platelet Volume 9.1 fL (7.4-10.4); Nucleated Red Blood Cells % 0.1; Platelet Count 218 10^3/uL (150-450); Red Blood Count 4.78 10^6 /uL (4.18-5.48); Red Cell Distribution Width 12 % (10-15); White Blood Count 5.6 10^3/uL (3.5-10.8)
--- NOTE | 2019-03-31 09:46 | ED ---
Abdominal Pain/Male - HPI Summary HPI Summary: Patient is a 28 y/o M presenting to the ED for a chief complaint of right flank pain. Patient is present with his mother. Patient notes that on the morning of 03/31/19, he began to feel right lower back pain and later noticed right flank pain, hematuria, dark urine, and nausea. Initially thought he strained his back playing soccer. He rates his pain as 2/10 in severity and describes the pain as a dull sensation. Patient denies fever or chills. Any significant PMHx or PSHx is denied. FMHx for nephrolithiasis is denied. - History of Current Complaint Chief Complaint: EDFlankPain Stated Complaint: LOW BACK PAIN/BLOODY URINE PER PT Time Seen by Provider: 03/31/19 09:13 Hx Obtained From: Patient Onset/Duration: Sudden Onset, Still Present Timing: Constant Severity Initially: Moderate Severity Currently: Moderate Pain Intensity: 6 Pain Scale Used: 0-10 Numeric Location: Flank - Right Radiates: Yes Radiates to: Back - Lower right Character: Dull Aggravating Factor(s): Nothing Alleviating Factor(s): Nothing Associated Signs And Symptoms: Positive: Back Pain - Right lower, Urinary Symptoms - Hematuria and dark urine, Nausea. Negative: Fever - Allergies/Home Medications Allergies/Adverse Reactions: Allergies Allergy/AdvReac Type Severity Reaction Status Date / Time doxycycline Allergy Anxiety Verified 03/31/19 08:22 PMH/Surg Hx/FS Hx/Imm Hx Previously Healthy: Yes Endocrine/Hematology History: Denies: Hx Diabetes Cardiovascular History: Denies: Hx Cardiac Arrest, Hx Hypercholesterolemia, Hx Hypertension History: Reports: Other Problems/Disorders - LEFT VARICOCELE Sensory History: Reports: Hx Contacts or Glasses - GLASSES WHEN DRIVING Denies: Hx Legally Blind, Hx Deafness Opthamlomology History: Reports: Hx Contacts or Glasses - GLASSES WHEN DRIVING Denies: Hx Legally Blind EENT History: Denies: Hx Deafness - Surgical History Surgical History: Yes Surgery Procedure, Year, and Place: 1996- BIOPSY LEFT HIP Hx Anesthesia Reactions: No Infectious Disease History: No Infectious Disease History: Denies: Traveled Outside the [place] in Last 30 Days - Family History Known Family History: Positive: Diabetes Negative: Other - Negative kidney stones - Social History Occupation: Employed Full-time Lives: Alone Alcohol Use: Weekly Alcohol Amount: 4 DRINKS WEEKLY Hx Substance Use: No Substance Use Type: Reports: None Hx Tobacco Use: No Smoking Status (MU): Never Smoked Tobacco Review of Systems Negative: Fever, Chills Positive: Abdominal Pain - Right flank, Nausea Positive: flank pain - Right, hematuria - With dark urine Positive: Myalgia - Right lower back All Other Systems Reviewed And Are Negative: Yes Physical Exam - Summary Physical Exam Summary: Constitutional: Well-developed, Well-nourished, Alert. (-) Distressed Skin: Warm, Dry HENT: Normocephalic; Atraumatic Eyes: Conjunctiva normal Neck: Musculoskeletal ROM normal neck. (-) JVD, (-) Stridor, (-) Nuchal rigidity Cardio: Rhythm regular, rate normal, Heart sounds normal; Intact distal pulses; Radial pulses are 2+ and symmetric. (-) Murmur Pulmonary/Chest wall: Effort normal. (-) Respiratory distress, (-) Wheezes, (-) Rales Abd: Soft, (-) Distension, (-) Guarding, (-) Rebound. Right flank tenderness. Musculoskeletal: (-) Edema Lymph: (-) Cervical adenopathy Neuro: Alert, Oriented x3 Psych: Mood and affect Normal Triage Information Reviewed: Yes Vital Signs On Initial Exam: Initial Vitals Temp Pulse Resp BP Pulse Ox 97.6 F 91 18 136/79 98 03/31/19 08:19 03/31/19 08:19 03/31/19 08:19 03/31/19 08:19 03/31/19 08:19 Vital Signs Reviewed: Yes Procedures - Sedation Patient Received Moderate/Deep Sedation with Procedure: No Diagnostics - Vital Signs Vital Signs Temp Pulse Resp BP Pulse Ox 03/31/19 08:19 97.6 F 91 18 136/79 98 - Laboratory Lab Results: Lab Results 03/31/19 Range/Units 09:19 WBC 5.6 (3.5-10.8) 10^3/uL RBC 4.78 (4.18-5.48) 10^6 /uL Hgb 14.6 (14.0-18.0) g/dL Hct 43 (42-52) % MCV 89 (80-94) fL MCH 31 (27-31) pg MCHC 34 (31-36) g/dL RDW 12 (10-15) % Plt Count 218 (150-450) 10^3/uL MPV 9.1 (7.4-10.4) fL Neut % (Auto) 51.2 % Lymph % (Auto) 37.4 % [place] % (Auto) 8.6 % Eos % (Auto) 2.3 % Baso % (Auto) 0.5 % Absolute Neuts (auto) 2.9 (1.5-7.7) 10^3/ul Absolute Lymphs (auto) 2.1 (1.0-4.8) 10^3/ul Absolute Monos (auto) 0.5 (0-0.8) 10^3/ul Absolute Eos (auto) 0.1 (0-0.6) 10^3/ul Absolute Basos (auto) 0.0 (0-0.2) 10^3/ul Absolute Nucleated RBC 0.0 10^3/ul Nucleated RBC % 0.1 Result Diagrams: 03/31/19 09:19 03/31/19 09:19 Lab Statement: Any lab studies that have been ordered have been reviewed, and results considered in the medical decision making process. - CT Abdomen/Pelvis CT CT Interpretation Completed By: Radiologist Summary of CT Findings: Abdomen/Pelvis CT IMPRESSION: RIGHT NEPHROLITHIASIS INCLUDING A RIGHT URETERAL CALCULUS, WITHOUT APPRECIABLEHYDRONEPHROSIS. Reviewed by Dr. Pulido. Abdominal Pain Male Course/Dx - Course Course Of Treatment: 28 y/o male p/w R flank pain and hematuria. -labs notable for: no leukocytosis, Cr normal. UA w 3+ blood, initial UA with yeast (likely contaminant) repeat w/o yeast. - CT w 0.4 cm stone w/o hydro or obstruction, suspect will pass. - given strainer, motrin and percocet. Follow up w urology if worsening otherwise can follow up w PCP - Diagnoses Provider Diagnoses: Kidney stones Discharge ED - Sign-Out/Discharge Documenting (check all that apply): Patient Departure - Discharge - Discharge Plan Condition: Stable Disposition: HOME Prescriptions: Ibuprofen TAB* [Motrin TAB* 800 MG] 800 mg PO TID PRN 10 Days #30 tab PRN Reason: Pain - Moderate Ondansetron ODT TAB* [Zofran 4 MG Odt TAB*] 4 mg PO Q8H PRN 4 Days #12 tab.odt PRN Reason: Nausea/Vomiting oxyCODONE/Acetamin 5/325 MG* [Percocet 5/325 TAB*] 1 tab PO Q6H PRN 3 Days #12 tab MDD 4 PRN Reason: Pain Permethrin 5% CREAM* 1 applic TOPICAL SEE INSTRUCTIONS 1 Days #1 tube Patient Education Materials: Kidney Stones (ED) Referrals: Sudhir Dumont, MANAGER [employer]ELOPMENT [Primary Care Provider] - Additional Instructions: You were seen in the emergency department for a kidney stone. Please take motrin as needed for pain, percocet for severe pain. Please follow up with your primary care doctor in next 2-3 days and return to emergency department for fevers, worsening pain, decreased urine output or concerning symptoms. It was a pleasure taking care of you today. - Billing Disposition and Condition Condition: STABLE Disposition: Home - Attestation Statements Document Initiated by Jeb: Yes Documenting Scribe: Rosalia Rankin Provider For Whom Jeb is Documenting (Include Credential): Sheila Pulido MD Scribe Attestation: IRosalia, scribed for Sheila Pulido MD on 03/31/19 at 1254. Scribe Documentation Reviewed: Yes Provider Attestation: The documentation as recorded by the Rosalia gonzalez accurately reflects the service I personally performed and the decisions made by , hSeila Pulido MD Status of Scribe Document: Viewed
[2019-03-31 09:47] LABS: Albumin 4.6 g/dL (3.2-5.2); Albumin/Globulin Ratio 1.6 (1-3); BUN/Creatinine Ratio 14.6 (8-20); Calcium 9.5 mg/dL (8.6-10.3); Globulin 2.9 g/dL (2-4); Potassium 3.8 mmol/L (3.5-5.0); Total Bilirubin 0.6 mg/dL (0.2-1.0); Total Protein 7.5 g/dL (6.4-8.9)
[2019-03-31 10:48] LABS: Urine Appearance Cloudy; Urine Bilirubin Negative (Negative); Urine Blood 3+ (Negative); Urine Color Yellow; Urine Glucose Negative (Negative); Urine Ketones Negative (Negative); Urine Nitrite Negative (Negative); Urine Protein 1+(30 mg/dL) (Negative); Urine Specific Gravity 1.021 (1.010-1.030); Urine Urobilinogen Negative (Negative)
[2019-03-31 10:52] LABS: Urine Bacteria Absent (Absent); Urine Red Blood Cell 3+(>10/hpf) (Absent); Urine Squamous Epithelial Cell Present (Absent); Urine White Blood Cell Absent (Absent)
[2019-03-31 12:08] LABS: Urine Appearance Clear; Urine Bilirubin Negative (Negative); Urine Blood 3+ (Negative); Urine Color Colorless; Urine Glucose Negative (Negative); Urine Ketones Negative (Negative); Urine Nitrite Negative (Negative); Urine Protein Negative (Negative); Urine Specific Gravity 1.003 (1.010-1.030); Urine Urobilinogen Negative (Negative)
[2019-03-31 12:11] LABS: Urine Bacteria Absent (Absent); Urine Red Blood Cell 3+(>10/hpf) (Absent); Urine White Blood Cell Absent (Absent)
[2019-03-31 12:41] VITALS: BP 134/63
== END 2019-03-31 12:35 | disposition home or self-care (01) ==
LOC: ED 08:15
DX: N20.0 Calculus of kidney (principal); R10.84 Generalized abdominal pain; M54.9 Dorsalgia, unspecified; R31.9 Hematuria, unspecified
CPT/HCPCS: 36415; 74176; 80053; 81003; 81015; 82550; 85025; 87086; 99284

== ENCOUNTER 2019-05-09 16:40 | Emergency (ER) | payer BC ==
--- NOTE | 2019-05-09 17:06 | ED ---
GI/ HPI - HPI Summary HPI Summary: 28-year-old male with a significant past medical history of kidney stones presents to the emergency department today complaining of penile pain with urination for 1 day. Patient states approximately one month ago he was diagnosed with a right ureteral kidney stone and he believes he passed a stone. Patient states he never followed up with urology. Patient states he believes he has a UTI as his girlfriend was recently diagnosed with a yeast infection. Patient states she is sexually active in a monogamous relationship girlfriend. Patient believes he also has blood in his urine. Patient denies of associated symptoms such as nausea, vomiting, flank pain, fever, rash, trips breath, chest pain, abdominal pain, testicular pain, groin pain. - History of Current Complaint Chief Complaint: EDUrogenitalProblems Time Seen by Provider: 05/09/19 16:49 Stated Complaint: BLOOD IN URINE PER PT Hx Obtained From: Patient Onset/Duration: Started Days Ago Timing: Constant Severity: Mild Current Severity: None Pain Intensity: 0 Additional Locations for Males: Penis Pain Characteristics: Burning Associated Signs and Symptoms: Positive: Dysuria, UTI Symptoms Additional Signs & Symptoms: Negative: Penile Discharge Aggravating Factor(s): Voiding - Allergy/Home Medications Allergies/Adverse Reactions: Allergies Allergy/AdvReac Type Severity Reaction Status Date / Time doxycycline Allergy Anxiety Verified 05/09/19 16:45 Home Medications: Home Medications NK [No Home Medications Reported] 05/09/19 [History Confirmed 05/09/19] PMH/Surg Hx/FS Hx/Imm Hx Endocrine/Hematology History: Denies: Hx Diabetes Cardiovascular History: Denies: Hx Cardiac Arrest, Hx Hypercholesterolemia, Hx Hypertension History: Reports: Other Problems/Disorders - LEFT VARICOCELE Sensory History: Reports: Hx Contacts or Glasses - GLASSES WHEN DRIVING Denies: Hx Legally Blind, Hx Deafness Opthamlomology History: Reports: Hx Contacts or Glasses - GLASSES WHEN DRIVING Denies: Hx Legally Blind - Surgical History Surgery Procedure, Year, and Place: 1996- BIOPSY LEFT HIP Hx Anesthesia Reactions: No Infectious Disease History: No Infectious Disease History: Denies: Traveled Outside the [place] in Last 30 Days - Family History Known Family History: Positive: None, Diabetes Negative: Other - Negative kidney stones - Social History Alcohol Use: Weekly Alcohol Amount: 4 DRINKS WEEKLY Hx Substance Use: No Substance Use Type: Reports: None Hx Tobacco Use: No Smoking Status (MU): Never Smoked Tobacco Review of Systems Constitutional: Negative Eyes: Negative ENT: Negative Cardiovascular: Negative Respiratory: Negative Gastrointestinal: Negative Positive: burning, dysuria, hematuria Musculoskeletal: Negative Skin: Negative Neurological/Mental Status: Negative Psychological: Normal All Other Systems Reviewed And Are Negative: Yes Physical Exam Triage Information Reviewed: Yes Vital Signs On Initial Exam: Initial Vitals Temp Pulse Resp BP Pulse Ox 97.5 F 60 19 139/90 98 05/09/19 16:42 05/09/19 16:42 05/09/19 16:42 05/09/19 16:42 05/09/19 16:42 Vital Signs Reviewed: Yes Appearance: Positive: Well-Appearing, No Pain Distress, Well-Nourished Skin: Positive: Warm, Skin Color Reflects Adequate Perfusion Eyes: Positive: EOMI, AZAM ENT: Positive: Hearing grossly normal Respiratory/Lung Sounds: Positive: Clear to Auscultation, Breath Sounds Present Cardiovascular: Positive: RRR, S1, S2 Abdomen Description: Positive: Nontender, Soft. Negative: CVA Tenderness (R), CVA Tenderness (L), Distended, Guarding Bowel Sounds: Positive: Present Musculoskeletal: Positive: Strength/ROM Intact Neurological: Positive: Sensory/Motor Intact, Alert, Oriented to Person Place, Time Psychiatric: Positive: Normal, Affect/Mood Appropriate AVPU Assessment: Alert Procedures - Sedation Patient Received Moderate/Deep Sedation with Procedure: No Diagnostics - Vital Signs Vital Signs Temp Pulse Resp BP Pulse Ox 05/09/19 16:42 97.5 F 60 19 139/90 98 - Laboratory Result Diagrams: 05/09/19 17:15 05/09/19 17:15 Lab Statement: Any lab studies that have been ordered have been reviewed, and results considered in the medical decision making process. GIGU Course/Dx - Course Course Of Treatment: Patient was evaluated in the emergency department today for hematuria. Vitals stable. Laboratory studies returned showing no evidence of leukocytosis, anemia, electrolyte disturbance. Urinalysis returned showing 3 + blood but no evidence of UTI. Patient's hematuria is likely due to renal calculi which was diagnosed approximately one month ago. No evidence of systemic infection or pyelonephritis. Cultures sent for gonorrhea and committee testing. Patient will be notified with positive results. Patient discharged with outpatient follow-up with urology. - Diagnoses Differential Diagnoses - Male: Renal Calculi, Renal Colic, STD, Urinary Tract Infection Provider Diagnoses: Renal colic Discharge ED - Sign-Out/Discharge Documenting (check all that apply): Patient Departure - Discharge Plan Condition: Stable Disposition: HOME Patient Education Materials: Kidney Stones (ED), Hematuria (ED) Referrals: Sudhir Dumont NP [Primary Care Provider] - Sai Story MD [Medical Doctor] - 3 Days Additional Instructions: Your symptoms are likely due to a residual kidney stone. Please follow up with urology in 3-5 days for further evaluation and management. We will call you with positive results of the cultures returned today. Please return to the emergency department immediately if you develop any new or worsening symptoms. - Billing Disposition and Condition Condition: STABLE Disposition: Home - Attestation Statements Provider Attestation: I was available for consult. This patient was seen by the SAIRA. The patient was not presented to, seen by, or examined by me. Robert Mendoza MD
[2019-05-09 17:20] LABS: ABS Eosinophils 0.1 10^3/ul (0-0.6); ABS Lymphocytes 2.3 10^3/ul (1.0-4.8); ABS Monocytes 0.5 10^3/ul (0-0.8); ABS Neutrophils 4.6 10^3/ul (1.5-7.7); Eosinophil % 1.8 %; Hematocrit 42 % (42-52); Hemoglobin 14.2 g/dL (14.0-18.0); Lymphocyte % 29.9 %; Mean Corpuscular HGB Conc 34 g/dL (31-36); Mean Corpuscular Hemoglobin 30 pg (27-31); Mean Corpuscular Volume 89 fL (80-94); Mean Platelet Volume 8.7 fL (7.4-10.4); Platelet Count 213 10^3/uL (150-450); Red Blood Count 4.69 10^6 /uL (4.18-5.48); Red Cell Distribution Width 13 % (10-15); White Blood Count 7.6 10^3/uL (3.5-10.8)
[2019-05-09 17:44] LABS: ALT 19 U/L (7-52); AST 17 U/L (13-39); Albumin 4.7 g/dL (3.2-5.2); Albumin/Globulin Ratio 1.7 (1-3); Alkaline Phosphatase 58 U/L (34-104); Anion Gap 6 mmol/L (2-11); Blood Urea Nitrogen 13 mg/dL (6-24); C Reactive Protein < 1.00 mg/L (<8.01); CO2 Carbon Dioxide 28 mmol/L (22-32); Calcium 9.4 mg/dL (8.6-10.3); Chloride 103 mmol/L (101-111); EGFR African American 98.5 (>60); EGFR Non-African American 81.4 (>60); Globulin 2.7 g/dL (2-4); Glucose 99 mg/dL (70-100); Potassium 3.8 mmol/L (3.5-5.0); Sodium 137 mmol/L (135-145); Total Protein 7.4 g/dL (6.4-8.9)
[2019-05-09 17:55] LABS: Urine Appearance Clear; Urine Bilirubin Negative (Negative); Urine Blood 2+ (Negative); Urine Color Yellow; Urine Glucose Negative (Negative); Urine Ketones Negative (Negative); Urine Nitrite Negative (Negative); Urine Protein Negative (Negative); Urine Specific Gravity 1.017 (1.010-1.030); Urine Urobilinogen Negative (Negative)
[2019-05-09 17:56] LABS: Urine Bacteria Absent (Absent); Urine Red Blood Cell 3+(>10/hpf) (Absent); Urine White Blood Cell Trace(0-5/hpf) (Absent)
[2019-05-09 18:58] VITALS: BP 133/60
[2019-05-11 15:07] LABS: Chlamydia trachomatis NAA Negative (Negative); Neisseria gonorrhoeae (GC) NAA Negative (Negative)
== END 2019-05-09 19:04 | disposition home or self-care (01) ==
LOC: ED 16:40
DX: N23 Unspecified renal colic (principal); R31.9 Hematuria, unspecified; Z88.1 Allergy status to other antibiotic agents
CPT/HCPCS: 36415; 80053; 81003; 81015; 85025; 86140; 87086; 87491; 87591; 99283